=== PATIENT | female | born 1975 | race Caucasian/White ===

== ENCOUNTER 2024-07-02 11:28 | Emergency (ER) | payer BC ==
--- OUTSIDE RECORDS SUMMARY | 2024-07-02 11:33 | XMS REPORT | Continuity of Care Document ---
Author Name Unknown Address [address] [facility] [place] [address] [facility] Address [address] [facility] [place] [address] Care Team Providers Care Campus Security Director Name Role Phone Nuzhat Bhagat Attending Clinician Unavailable Nuzhat Bhagat Admitting Clinician Unavailable Payers Payer Name Policy Type Policy Number Effective Date Expirati on Date Source Encounters Start Date/Time End Date/Time Encounter Type Admission Type Attending Clinicians Care Facility Care Department Encounter ID Source 2024-05-31 08:00:00 2024-05-31 08:00:00 Outpatient Nuzhat Avina [id number] [facility] 2024-02-24 08:00:00 2024-02-24 08:00:00 Outpatient Nuzhat Avina [id number] [facility] 2023-02-21 10:21:00 2023-02-21 10:21:00 Outpatient Nuzhat Avina [id number] [facility]
--- NOTE | 2024-07-02 13:41 | RAD REPORT ---
EXAMINATION: Abdomen Pelvis Wo Contrast CLINICAL INDICATION: Female, 48 years old.umbilical hernia TECHNIQUE: CT abdomen and pelvis was performed, without IV contrast, as per department protocol. Axia l, sagittal and coronal reconstructions were obtained. One or more of the following dose reduction techniques were used: Automated exposure control, adjustment of the mA and/or kV according to the pat ient size, and/or iterative reconstruction. Unless otherwise specified, incidental findings do not require dedicated imaging follow-up. [id number]. IV CONTRAST: Not administered. COMPARISON: None FINDINGS: The lack of intravenous contrast limits the sensitivity of this exam for evaluation of solid visceral organs, vascular structures, and retroperitoneum. LOWER CHEST: No acute process identified.No significant pericardial effusion. Small hiatal hernia wit h circumferential thickening of the esophagus which could reflect esophagitis. UPPER GI: No significant abnormality. LIVER: No significant focal abnormality. GALLBLADDER/BILE DUCTS: No biliary ductal dilatation.? PANCREAS: No mass, ductal dilation, or liliana-pancreatic fluid. SPLEEN: Unremarkable. ADRENALS: No adrenal masses. KIDNEYS AND URETERS: No hydronephrosis.Limited evaluation for renal lesions in the absence of IV cont rast.No renal calculi.No ureteral calculi. ABDOMINAL AORTA AND OTHER VESSELS: Normal caliber aorta and IVC. PERITONEUM: No abnormal free fluid. No free air. LYMPH NODES: No pathologic lymphadenopathy. ABDOMINAL WALL: Ventral abdominal wall laxity with small umbilical hernia. There is some small bowel that comes into close approximation to the umbilical hernia but does not appear incarcerated or inflamed. SMALL BOWEL/COLON: Small bowel has normal course and caliber. No colonic wall thickening or pericolon ic inflammatory changes.Normal appendix. URINARY BLADDER: Underdistended but grossly unremarkable. REPRODUCTIVE ORGANS: 4.5 cm left adnexal cyst. MUSCULOSKELETAL: Multilevel degenerative changes in the spine. No acute fracture. ADDITIONAL FINDINGS: None. IMPRESSION: No acute findings within the abdomen or pelvis. Fat-containing umbilical hernia with closely approxim ated small bowel. No bowel obstruction or inflammatory changes. 4.5 cm left adnexal cyst. Recommend nonemergent pelvic ultrasound.
--- NOTE | 2024-07-02 13:48 | ER ---
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 Pt denies pain. Coronavirus screen: At this time, the client does not indicate any symptoms associated with coronavirus-19. Ebola Screen: No symptoms or risks identified at this time. Initial Sepsis Screen: Does the patient meet any 2 criteria? No. Patient's initial sepsis screen is negative. Does the patient have a suspected source of infection? No. Patient's initial sepsis screen is negative. Risk Assessment: Do you want to hurt yourself or someone else? Patient reports no desire to harm self or others. Onset of symptoms is unknown. 12:01 Method Of Arrival: Ambulatory jl7 12:01 Acuity: TRISHA 3 jl7 Triage Assessment: 12:03 General: Appears in no apparent distress. comfortable, Behavior is calm, cooperative, jl7 appropriate for age. Pain: Denies pain. 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 - Infectious Disease History:: Denies. - Social history:: Smoking status: Patient denies any tobacco usage or history of. - Family history:: not pertinent. Screenin:00 [facility] ED Fall Risk Assessment (Adult) History of falling in the last 3 months, iw including since admission No falls in past 3 months (0 pts) Confusion or Disorientation No (0 pts) Intoxicated or Sedated No (0 pts) Impaired Gait No (0 pts) Mobility Assist Device Used No (0 pt) Altered Elimination No (0 pt) Score/Fall Risk Level 0 - 2 = Low Risk Oriented to surroundings, Maintained a safe environment. Abuse screen: Denies threats or abuse. Denies injuries from another. Nutritional screening: No deficits noted. Tuberculosis screening: No symptoms or risk factors identified. Assessment: 13:30 General: Appears in no apparent distress. Behavior is calm, cooperative. Pain: Denies iw pain. Neuro: Level of Consciousness is awake, alert, obeys commands, Oriented to person, place, time, situation, Moves all extremities. Full function. Cardiovascular: Patient's skin is warm and dry. Respiratory: Respiratory effort is even, unlabored, Respiratory pattern is regular, symmetrical. GI: Abdomen is non-distended. Derm: Skin is intact, is healthy with good turgor. Musculoskeletal: Range of motion: intact in all extremities. Vital Signs: 12:01 BP 150 / 93; Pulse 74; Resp 17; Temp 98.1; Pulse Ox 98% ; Weight 64.41 kg; Height 5 ft. jl7 2 in. ; Pain 0/10; 12:01 Body Mass Index 25.97 (64.41 kg, 157.48 cm) jl7 12:01 Pain Scale: Adult jl7 ED Course: 11:32 Patient arrived in ED. mr 11:35 Tunde Mcclure MD is Attending Physician. rt 12:03 Triage completed. jl7 12:03 Arm band placed on right wrist. jl7 13:10 Sofie Arambula, SOSA is Primary Nurse. iw 13:19 CT Abd/Pelvis - Without Contrast In Process Unspecified. EDMS 13:48 Yayo Roach MD is Referral Physician. rt 14:02 No provider procedures requiring assistance completed. Patient did not have IV access iw during this emergency room visit. Administered Medications: No medications were administered Medication: 13:30 VIS not applicable for this client. iw Outcome: 13:48 Discharge ordered by MD. rt 14:02 Discharged to home ambulatory, iw 14:02 Condition: good 14:02 Discharge instructions given to patient, Instructed on discharge instructions, follow up and referral plans. Demonstrated understanding of instructions, follow-up care, 14:03 Patient left the ED. iw Signatures: Dispatcher [employer] EDIA Corine Buckley, Reg Reg mr Sofie Arambula, RN RN iw Darrius Doss RN RN jl7 Tunde Mcclure MD MD rt
--- NOTE | 2024-07-02 13:48 | EDPHYS ---
Physician Documentation [facility] Name: Pamela Kirk Age: 48 yrs Sex: Female : 1975 Arrival Date: 07/02/2024 Time: 11:28 Bed 9 Private MD: ED Physician Tunde Mcclure HPI: 07/02 15:12 This 48 yrs old Female presents to ER via Ambulatory with complaints of Hernia. rt 15:12 Patient has had an umbilical hernia for about a decade following the of her rt child. Patient denies any significant pain to the area. States that it turned purple on Friday and call Dr. Roach's office today who sent her to the ED for further evaluation. Denies any pain, nausea, vomiting. Denies other acute complaints, symptoms are mild in severity, no other aggravating or alleviating factors.. 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 - Infectious Disease History:: Denies. - Social history:: Smoking status: Patient denies any tobacco usage or history of. - Family history:: not pertinent. ROS: 15:12 Constitutional: Negative for fever, chills, and weight loss, Cardiovascular: Negative rt for chest pain, palpitations, and edema, Respiratory: Negative for shortness of breath, cough, wheezing, and pleuritic chest pain, MS/Extremity: Negative for injury and deformity, Skin: Negative for injury, rash, and discoloration, Neuro: Negative for headache, weakness, numbness, tingling, and seizure, 15:12 Abdomen/GI: Positive for Hernia, negative for abdominal pain, Exam: 15:12 Constitutional: This is a well developed, well nourished patient who is awake, alert, rt and in no acute distress. Head/Face: Normocephalic, atraumatic. Chest/axilla: Normal chest wall appearance and motion. Nontender with no deformity. No lesions are appreciated. Cardiovascular: Regular rate and rhythm with a normal S1 and S2. No gallops, murmurs, or rubs. Normal PMI, no JVD. No pulse deficits. Respiratory: Lungs have equal breath sounds bilaterally, clear to auscultation and percussion. No rales, rhonchi or wheezes noted. No increased work of breathing, no retractions or nasal flaring. Skin: Warm, dry with normal turgor. Normal color with no rashes, no lesions, and no evidence of cellulitis. MS/ Extremity: Pulses equal, no cyanosis. Neurovascular intact. Full, normal range of motion. Neuro: Awake and alert, GCS 15, oriented to person, place, time, and situation. Cranial nerves II-XII grossly intact. Motor strength 5/5 in all extremities. Sensory grossly intact. Cerebellar exam normal. Normal gait. 15:12 Abdomen/GI: Easily reducible umbilical hernia, very slight discoloration to the skin, no abdominal tenderness, Vital Signs: 12:01 BP 150 / 93; Pulse 74; Resp 17; Temp 98.1; Pulse Ox 98% ; Weight 64.41 kg; Height 5 ft. jl7 2 in. ; Pain 0/10; 12:01 Body Mass Index 25.97 (64.41 kg, 157.48 cm) jl7 12:01 Pain Scale: Adult jl7 MDM: 12:53 Medical Screening Exam initiated rt 15:12 Differential Diagnosis Umbilical hernia, strangulated hernia, incarcerated hernia. Data rt reviewed: vital signs, nurses notes, radiologic studies. Management of patient was discussed with the following: Columnist: Dr. Roach several see patient next week in the office. Independent interpretation of the following test(s) in the Emergency Department CT Scan: My interpretation is No bowel obstruction syndrome interpretation of CT scan images. Test considered but Not performed: Labs: Stable vital signs, labs not indicated. Counseling: I had a detailed discussion with the patient and/or guardian regarding the historical points, exam findings, and any diagnostic results supporting the discharge/admit diagnosis, radiology results, the need for outpatient follow up. Response to treatment: the patient's symptoms have markedly improved after treatment. 07/02 13:08 Order name: CT Abd/Pelvis - Without Contrast; Complete Time: 13:43 rt Administered Medications: No medications were administered Disposition Summary: 07/02/24 13:48 Discharge Ordered Notes: Location: Home rt Problem: an ongoing problem rt Symptoms: have improved rt Condition: Stable rt Diagnosis - Umbilical hernia rt - Ovarian cyst rt Followup: rt - With: Yayo Roach MD - When: 5 - 6 days - Reason: Discharge Instructions: - Discharge Summary Sheet rt - Ovarian Cyst rt - Umbilical Hernia, Adult rt Forms: - Medication Reconciliation Form rt - Antibiotic Education rt - Prescription Opioid Use rt - Patient Portal Instructions rt - Leadership Thank You Letter rt Signatures: Dispatcher [employer] Darrius Kenny RN RN jl7 Tunde Mcclure MD MD rt
[2024-07-02 14:17] VITALS: BP 150/93; TEMP 98.1; O2SAT 98
== END 2024-07-02 14:03 | disposition home or self-care (01) ==
LOC: ER 11:28
DX: K42.9 Umbilical hernia without obstruction or gangrene (principal); N83.202 Unspecified ovarian cyst, left side
CPT/HCPCS: 74176; 99282